=== PATIENT | male | born 1935 | race Two or more races ===

== ENCOUNTER 2017-10-29 09:58 | Inpatient (IN) | payer MEDICARE, OTHER ==
[2017-10-29] MEDS ORDERED: RINGERS SOLUTION,LACTATED 1,000 ML IV ONE (10:21)
[2017-10-29 10:36] LABS: ABSOLUTE EOSINOPHILS # (AUTO) 0.2 10^3/uL (0.0-0.6); ABSOLUTE LYMPHOCYTES (AUTO) 1.4 10^3/uL (0.5-4.7); ABSOLUTE MONOCYTES (AUTO) 0.5 10^3/uL (0.1-1.4); ABSOLUTE NEUT (AUTO) 6.4 10^3/uL (1.7-8.2); BASOPHILS % (AUTO) 0.4 % (0-2); EOSINOPHILS % (AUTO) 2.1 % (0-6); HEMATOCRIT 38.5 % (37.9-51.0); HEMOGLOBIN 13.9 g/dL (13.5-17.0); LYMPHOCYTES % (AUTO) 16.6 % (13-45); MEAN CORPUSCULAR HEMOGLOBIN 31.1 pg (27.0-33.4); MEAN CORPUSCULAR HGB CONC 36.1 g/dL (32.0-36.0); MEAN CORPUSCULAR VOLUME 86 fl (80-97); MONOCYTES % (AUTO) 5.9 % (3-13); PLATELET COUNT 258 10^3/uL (150-450); RED BLOOD COUNT 4.46 10^6/uL (4.35-5.55); RED CELL DISTRIBUTION WIDTH 14.7 % (11.5-14.0); TOTAL CELLS COUNTED % (AUTO) 100 %; WHITE BLOOD COUNT 8.6 10^3/uL (4.0-10.5)
--- NOTE | 2017-10-29 10:36 | ER Document Report ---
ED General - General Chief Complaint: Urinary Problem Stated Complaint: FAILURE TO THRIVE Time Seen by Provider: 10/29/17 10:04 Notes: Patient was brought in by EMS at the request of his daughter. She says that the patient has been deteriorating in health over the past few weeks. He has not been eating well or drinking sufficient fluids and has been feeling weak and dizzy. Last night, the daughter came home and found that the patient did had a very large liquid stool that was reddish brown in color. Has never done that before. His urine output has been down, but he did urinate this morning and EMS reported that there was blood in the toilet bowl where he urinated. Has not had any vomiting. Is hard of hearing and wears hearing aids which he does not have been at this time and is difficult to get a complete history or review of systems. Daughter says he has complained of some shortness of breath. Denies history of kidney disease or liver disease. Does have a history of atrial fibrillation, but not on any blood thinners except a baby aspirin daily. - Related Data Allergies/Adverse Reactions: No Known Allergies Allergy (Unverified 10/29/17 10:41) Past Medical History - Social History Smoking Status: Unknown if Ever Smoked Frequency of alcohol use: None - Since 1980s Family History: Reviewed & Not Pertinent - Past Medical History Cardiac Medical History: Reports: Hx Atrial Fibrillation Denies: Hx Coronary Artery Disease Neurological Medical History: Denies: Hx Cerebrovascular Accident Endocrine Medical History: Reports: Hx Diabetes Mellitus Type 1 GI Medical History: Denies: Hx Cirrhosis Psychiatric Medical History: Reports: Hx Depression Review of Systems - Review of Systems Notes: REVIEW OF SYSTEMS: Mostly from daughter. CONSTITUTIONAL : Denies fever. Generalized weakness, dizziness. EENT: Denies eye, ear, nose or mouth or throat pain or other symptoms. CARDIOVASCULAR: Denies chest pain. RESPIRATORY: Denies cough, chest congestion, but has had some occasional shortness of breath. GASTROINTESTINAL: Denies abdominal pain or nausea, vomiting, or diarrhea, but see HPI. GENITOURINARY: Denies difficulty or painful urinating, urinary frequency, but EMS did see blood in urine this morning. MUSCULOSKELETAL: Denies back or neck pain. Denies joint pain or swelling. SKIN: Denies rash or skin lesions. NEUROLOGICAL: Denies LOC or altered mental status. Denies headache. Denies sensory loss or motor deficits. ALL OTHER SYSTEMS REVIEWED AND NEGATIVE. -: Yes ROS unobtainable due to patient's medical condition - Patient is hard of hearing and does not answer questions fully. Physical Exam - Vital signs Vitals: Resp Pulse Ox 14 100 10/29/17 10:06 10/29/17 10:06 Interpretation: Normal - Notes Notes: PHYSICAL EXAMINATION: GENERAL: Weak-appearing, in no acute distress. Vital signs are all essentially normal. Patient answers questions poorly, some of that because he is deaf and not wearing his hearing aids. Some may be due to altered mental status. HEAD: Atraumatic, normocephalic. EYES: Pupils equal round and reactive to light, extraocular movements intact. ENT: oropharynx clear without exudates. Moist mucous membranes. NECK: Normal range of motion, supple. No carotid bruits heard. LUNGS: Breath sounds clear and equal bilaterally. HEART: Regular rate and rhythm without murmurs. ABDOMEN: Soft, nontender. No guarding or rebound. No masses. No bruits heard. Rectal exam performed. Hard stool in the vault. Yellow colored stool. Enlarged prostate. BACK: No tenderness throughout entire back. EXTREMITIES: Normal range of motion without pain. NEUROLOGICAL: Gait not tested. I do not think the patient can stand because of weakness. Normal speech at times, but at other times does not seem to hear or answer appropriately. Grossly moves all 4 extremities.. Awake, alert, but not oriented x3. PSYCH: Unable to assess. SKIN: Warm, dry, no rashes. Course - Re-evaluation Re-evalutation: 10/29/17 13:54 Discussed with hospitalist who will admit patient to telemetry. 10/29/17 14:35 Patient's calcium is elevated patient for that. Patient's CT scan shows a very large right renal cell cancer that is almost completely replaced the kidney on that side. Extensive involvement of lung and ribs with metastases from the primary of the kidney. - Vital Signs Vital signs: Temp Pulse Resp BP Pulse Ox 97.3 F 12 105/54 L 95 10/29/17 10:41 10/29/17 14:01 10/29/17 14:01 10/29/17 14:01 - Laboratory Result Diagrams: 10/29/17 09:35 10/29/17 09:35 Laboratory results interpreted by me: 10/29/17 10/29/1710/29/18 09:35 09:35 09:35 MCHC 36.1 H RDW 14.7 H APTT 42.9 H Carbon Dioxide 32 H Calcium 12.3 H* Direct Bilirubin 0.5 H AST 15 L ALT 15 L Creatine Kinase 31 L Albumin 3.4 L Lipase 21.9 L Urine Protein Urine Blood Urine Urobilinogen 10/29/17 10:30 MCHC RDW APTT Carbon Dioxide Calcium Direct Bilirubin AST ALT Creatine Kinase Albumin Lipase Urine Protein 30 H Urine Blood LARGE H Urine Urobilinogen 4.0 H - Diagnostic Test Radiology reviewed: Image reviewed, Reports reviewed Radiology results interpreted by me: 10/29/17 14:37 Chest x-ray shows multiple extensive cancerous lesions of both lung khanna. - EKG Interpretation by Ar EKG shows normal: Sinus rhythm Rate: Normal Rhythm: NSR - CT scan shows extensive renal cell cancer of the right kidney, replacing almost all kidney tissue. Discharge - Discharge Clinical Impression: Renal cell cancer, Hypercalcemia, Metastatic cancer to bone, Metastatic cancer to lung Condition: Serious Disposition: ADMITTED INPATIENT Admitting Provider: Hospitalist Unit Admitted: Telemetry
[2017-10-29 10:43] LABS: INTERNATIONAL RATION (INR) 1.06; PROTHROMBIN TIME 14.3 SEC (11.4-15.4)
[2017-10-29 10:44] LABS: PARTIAL THROMBOPLASTIN TIME 42.9 SEC (23.5-35.8)
[2017-10-29 10:49] LABS: APPEARANCE,URINE CLOUDY; BILIRUBIN,URINE NEGATIVE (NEGATIVE); COLOR,URINE DARK YELLOW; GLUCOSE, URINE NEGATIVE (NEGATIVE); KETONES,URINE NEGATIVE (NEGATIVE); LEUKOCYTE ESTERASE,URINE NEGATIVE (NEGATIVE); NITRITE,URINE NEGATIVE (NEGATIVE); PROTEIN,URINE 30 mg/dL (NEGATIVE); URINE SPECIFIC GRAVITY 1.013
[2017-10-29 10:50] LABS: ALANINE AMINOTRANSFERASE 15 U/L (21-72); ALBUMIN 3.4 g/dL (3.5-5.0); ALKALINE PHOSPHATASE 114 U/L (38-126); ANION GAP 12 (5-19); ASPARTATE AMINO TRANSFERASE 15 U/L (17-59); BILIRUBIN,DIRECT 0.5 mg/dL (0.0-0.4); BLOOD UREA NITROGEN 13 mg/dL (7-20); CARBON DIOXIDE 32 mmol/L (22-30); CHLORIDE 99 mmol/L (98-107); CREATINE KINASE 31 U/L (55-170); GLUCOSE 107 mg/dL (75-110); LIPASE 21.9 U/L (23-300); POTASSIUM 3.6 mmol/L (3.6-5.0); SODIUM 142.9 mmol/L (137-145); TOTAL PROTEIN 6.6 g/dL (6.3-8.2)
[2017-10-29 11:02] LABS: CALCIUM 12.3 mg/dL (8.4-10.2); CREATINE KINASE MB 1.02 ng/mL (<4.55); TROPONIN I < 0.012 ng/mL
--- NOTE | 2017-10-29 11:04 | RADIOLOGY REPORT (SQ) ---
EXAM DESCRIPTION: CHEST SINGLE VIEW COMPLETED DATE/TIME: 10/29/2017 10:51 am REASON FOR STUDY: Shortness of breath COMPARISON: None. EXAM PARAMETERS: NUMBER OF VIEWS: One view. TECHNIQUE: Single frontal radiographic view of the chest acquired. RADIATION DOSE: NA LIMITATIONS: None. FINDINGS: LUNGS AND PLEURA: Multiple pulmonary nodules are present about 2 cm in size worrisome for metastatic disease. No dense consolidation worrisome for pneumonia. No focal infiltrates. No pleural effusion. MEDIASTINUM AND HILAR STRUCTURES: No masses. Contour normal. HEART AND VASCULAR STRUCTURES: Borderline cardiomegaly BONES: Old healed bilateral rib fractures. HARDWARE: None in the chest. OTHER: No other significant finding. IMPRESSION: Multiple pulmonary nodules worrisome for metastatic disease TECHNICAL DOCUMENTATION: JOB ID: [id number] [employer]- All Rights Reserved Reading location - IP/workstation name: [email or web address]
--- NOTE | 2017-10-29 12:25 | RADIOLOGY REPORT (SQ) ---
EXAM DESCRIPTION: CT HEAD WITHOUT COMPLETED DATE/TIME: 10/29/2017 12:15 pm REASON FOR STUDY: Pulmonary metastases, altered mental status COMPARISON: None. TECHNIQUE: Axial images acquired through the brain without intravenous contrast. Images reviewed wi th bone, brain and subdural windows. Additional sagittal and coronal reconstructions were generated. Images stored on PACS. All CT scanners at this facility use dose modulation, iterative reconstruction, and/or weight based d osing when appropriate to reduce radiation dose to as low as reasonably achievable (ALARA). [facility]: Dose Right [facility]: CareDose [facility]: Dose Right [facility]: Teradose 4D [facility]: [employer] RADIATION DOSE: CT Rad equipment meets quality standard of care and radiation dose reduction techniq ues were employed. CTDIvol: 53.2 mGy. DLP: 1124 mGy-cm. mGy. LIMITATIONS: None. FINDINGS: VENTRICLES: Normal size and contour. CEREBRUM: No masses. No hemorrhage. No midline shift. No evidence for acute infarction. Normal gra y/white matter differentiation. No areas of low density in the white matter. CEREBELLUM: No masses. No hemorrhage. No alteration of density. No evidence for acute infarction. EXTRAAXIAL SPACES: No fluid collections. No masses. ORBITS AND GLOBE: No intra- or extraconal masses. Normal contour of globe without masses. CALVARIUM: No fracture. PARANASAL SINUSES: No fluid or mucosal thickening. SOFT TISSUES: No mass or hematoma. OTHER: No other significant finding. IMPRESSION: NORMAL BRAIN CT WITHOUT CONTRAST. EVIDENCE OF ACUTE STROKE: NO. COMMENT: Quality ID # [id number]: Final reports with documentation of one or more dose reduction techniques (e.g., Automated exposure control, adjustment of the mA and/or kV according to patient size, use of iterative reconstruction technique) TECHNICAL DOCUMENTATION: JOB ID: [id number] [employer]- All Rights Reserved Reading location - IP/workstation name: [email or web address]
--- NOTE | 2017-10-29 12:36 | RADIOLOGY REPORT (SQ) ---
EXAM DESCRIPTION: CT ABD/PELVIS WITH IV ONLY; CT CHEST WITH COMPLETED DATE/TIME: 10/29/2017 12:15 pm REASON FOR STUDY: Pulmonary metastases, unknown source COMPARISON: Radiographs from today. CONTRAST TYPE AND DOSE: contrast/concentration: Isovue 370.00 mg/ml; Total Contrast Delivered: 59.0 ml; Total Saline Delivered: 65.0 ml RENAL FUNCTION: Creatinine 0.71. TECHNIQUE: CT scan of the chest performed using helical scanning technique with dynamic intravenous contrast injection. Images reviewed with lung, soft tissue and bone windows. Reconstructed coronal a nd sagittal MPR images reviewed. All images stored on PACS. CT scan of the abdomen and pelvis performed with intravenous and with oral contrastusing helical scan vangie technique with dynamic intravenous contrast injection. Images reviewed with lung, soft tissue a nd bone windows. Reconstructed coronal and sagittal MPR images reviewed. Delayed images for evaluat ion of the urinary system also acquired and evaluated. All images stored on PACS. All CT scanners at this facility use dose modulation, iterative reconstruction, and/or weight based d osing when appropriate to reduce radiation dose to as low as reasonably achievable (ALARA). [facility]: Dose Right [facility]: CareDose [facility]: Dose Right [facility]: Teradose 4D [facility]: [employer] RADIATION DOSE: CT Rad equipment meets quality standard of care and radiation dose reduction techniq ues were employed. CTDIvol: 7.1 - 10.5 mGy. DLP: 1696 mGy-cm. . LIMITATIONS: None. FINDINGS: CHEST: LUNGS AND PLEURA: As seen radiographically, there are innumerable soft tissue masses scattered throug hout all lobes of the bilateral lungs consistent with metastases. Largest measure almost 3 cm in max imal dimension. No significant pleural effusion. HILAR AND MEDIASTINAL STRUCTURES: No identified masses or abnormal nodes. HEART AND VASCULAR STRUCTURES: No aneurysm or dissection. No central pulmonary emboli. No pericardi al effusion. HARDWARE: None. THYROID AND OTHER SOFT TISSUES: Thyroid partially obscured by dense contrast artifact regionally. No gross regional mass. No axillary adenopathy. Destructive mass along the right scapula has a large soft tissue component measuring at least 5 cm maximal dimension. BONES: As above. Osteopenia and spondylosis otherwise. OTHER: No other significant finding. ABDOMEN AND PELVIS: LIVER: Normal size. No masses. No dilated ducts. SPLEEN: Normal size. No focal lesions. PANCREAS: No masses. No significant calcifications. No adjacent inflammation or peripancreatic fluid collections. Pancreatic duct not dilated. GALLBLADDER: No identified stones by CT criteria. No inflammatory changes to suggest cholecystitis. ADRENAL GLANDS: No significant masses or asymmetry. RIGHT KIDNEY AND URETER: Extensive mass involves the majority of the right kidney. Maximal abnormal soft tissue component probably measures at least 10 cm transverse dimension. Associated irregular ca lcification with diminished renal parenchymal enhancement otherwise. LEFT KIDNEY AND URETER: No solid masses. No significant calcification. No hydronephrosis or hydrouret er. AORTA AND VESSELS: Normal caliber aorta without dissection or aneurysm. Major arterial branches are patent. No overt venous clot detected. Numerous collateral vessels are present along the renal hilu m. No gross IVC clot. RETROPERITONEUM: No overt adenopathy. BOWEL AND PERITONEAL CAVITY: Diverticulosis in the distal colon. No bowel obstruction evident. No g ross mass. APPENDIX: Normal. ABDOMINAL WALL: No masses. No hernias. PELVIS: Prostate enlarged. Guerrero catheter decompresses the bladder. No pelvic adenopathy or gross m ass. Several sclerotic bone foci in the pelvis. Atypical appearance for renal cell carcinoma, likel y related to bone islands. Slight sclerosis along the right ischium, again not typical appearance fo r renal cell metastasis. BONES: As above. OTHER: No other significant finding. IMPRESSION: 1. As seen radiographically, there is extensive bilateral pulmonary metastatic disease. 2. The primary lesion is presumably renal cell carcinoma. A large irregular mass largely replaces the right kidney. 3. Large destructive metastatic soft tissue mass in the posterior chest wall par tially involves the right scapula. Other bones are suspected to be intact. See description above. TECHNICAL DOCUMENTATION: JOB ID: [id number] Quality ID # [id number]: Final reports with documentation of one or more dose reduction techniques (e.g., Au tomated exposure control, adjustment of the mA and/or kV according to patient size, use of iterative reconstruction technique) 2010 [employer]- All Rights Reserved Reading location - IP/workstation name: [email or web address]
[2017-10-29] MEDS ORDERED: ONDANSETRON HCL INJ/PF 4 MG/2 ML SDV IV PRN (15:12)
[2017-10-29] MEDS ORDERED: ZOLEDRONIC ACID 5 MG/100 ML BOTTLE IV ONE (15:14)
[2017-10-29] MEDS ORDERED: GLUCAGON,HUMAN RECOMB 1 MG INJ IM PRN (15:16)
[2017-10-29] MEDS ORDERED: DEXTROSE 40% GEL 15 GM TUBE PO PRN ×2 (15:16)
[2017-10-29] MEDS ORDERED: INSULIN REG, HUMAN 100 UNIT/ML 3 ML VIAL (PYX) SUBCUT PRN (15:16)
[2017-10-29] MEDS ORDERED: DEXTROSE 50%-WATER 25 GM/50 ML DISP.SYRIN IV PRN ×2 (15:16)
--- NOTE | 2017-10-29 16:09 | PDOC H&P ---
History of Present Illness Admission Date/PCP: 10/29/17 15:16 Patient complains of: Weakness, loss of appetite, weight loss, hematuria vs rectal bleeding. History of Present Illness: SARA XIAO SR is a 82 year old male who is on a long visit with his daughter from his home in [place]. The history is supplied by the patient's daughter who is at bedside. The patient is sleeping and is difficult to arouse. The daughter states that the patient had a check up with his doctor in [place] in 02/2017, and was given a "clean bill of health". She states that he was doing very well and was planning to return to [place] this Spring when he lost his appetite in August. He then changed his plans and did not return to [place]. She states that other than a lack of appetite which has worsened since August and pain in his right knee, he has had no complaints. She had noticed some drastic weight loss when he worse jeans out to dinner a couple of weeks ago. She states that she had to "cinch" the belt at his waist due to weight loss. She states that over a week ago the patient fell and spent a couple of days in bed after that. However after a couple of days, he stated that he thought that the rest had improved his knee pain. However, over the last couple of days she had observed her father becoming weaker and weaker. She states that he got up to go to the bathroom yesterday evening. After he left the bathroom, she observed bloody material, she wasn't sure if it was fecal material or bloody urine, all over the bathroom. That is when she decided to bring him to the ED this morning. The patient's daughter is not certain of the patient's medical history. She states that he had a heart catheterization 3-5 years ago. She does not know if he received any stents at that time. She states that he has had atrial fibrillation in the past. He is a diabetic and had been very poorly controlled until she became involved in his physical care after the of her mother. He takes only metformin for his diabetes, but this was stopped on the advise of his doctor in [place] after they called him to discuss his lack of appetite in August. He has hypertension, but normal cholesterol. The daughter is not aware of any history of renal or hepatic problems. No GI history. He does have a diagnosis of anxiety for which he takes Zoloft. In the ED he has been found to have a calcium of 12, a large right renal mass, bilateral pulmonary metastasis, and a right scapular lesion. he is obtunded and is unable to participate in history or physical. Past Medical History Cardiac Medical History: Reports: Atrial Fibrillation, Coronary Artery Disease, Hyperlipidema, Other - Pt underwent LHC in [place] 3-5 years ago. The dtr does not know if stent placed Pulmonary Medical History: Reports: None EENT Medical History: Reports: None Neurological Medical History: Reports: None Endocrine Medical History: Reports: Diabetes Mellitus Type 2 Renal/ Medical History: Reports: None Malignancy Medical History: Reports: None GI Medical History: Denies: None, Cirrhosis, Gastroesophageal Reflux Disease, Peptic Ulcer Disease Musculoskeltal Medical History: Reports: Arthritis - osteoarthritis Psychiatric Medical History: Reports: Depression, General Anxiety Disorder Traumatic Medical History: Reports: Other - Fell over a week ago at home. Infectious Medical History: Reports: None Past Surgical History Past Surgical History: Reports: None Social History Smoking Status: Never Smoker Frequency of Alcohol Use: Occasional - Daily. Amount of Alcoholic Beverages Per Day: 6 pack of beer a day. Hx Recreational Drug Use: No Drugs: None Hx Prescription Drug Abuse: No Family History Parental Family History Reviewed: No - Unknown to dauther. Children Family History Reviewed: Unknown Sibling(s) Family History Reviewed.: Unknown Medication/Allergy Home Medications: No Home Medications 10/29/17 Allergies/Adverse Reactions: No Known Allergies Allergy (Unverified 10/29/17 10:41) Review of Systems ROS unobtainable: Due to mental status Physical Exam Vital Signs: Temp Pulse Resp BP Pulse Ox 97.3 F 17 123/64 95 10/29/17 10:41 10/29/17 15:01 10/29/17 15:01 10/29/17 15:01 General appearance: PRESENT: other - The patient is cachectic and acutely and chronically ill appearing. He is sleeping soundly. He stirs to tactile and verbal stimulation, but does not awaken or follow commands. Head exam: PRESENT: atraumatic, normocephalic Eye exam: PRESENT: other - The patient will not open eyes for exam, and squeezes them tightly shut when I try to open them. Mouth exam: PRESENT: other - The patient will not open mouth or extrude tongue for examination. Neck exam: ABSENT: carotid bruit, JVD, lymphadenopathy, meningismus, tenderness , thyromegaly Respiratory exam: PRESENT: other - No increased work of breathing. No wheezes, rales, or rhonchi. No tactile fremitus.. ABSENT: rales, rhonchi, wheezes Cardiovascular exam: PRESENT: RRR, other - No lateral PMI. No thrills.. ABSENT : diastolic murmur, rubs, systolic murmur Pulses: PRESENT: other - Diminished distal pulses bilaterally. Vascular exam: PRESENT: normal capillary refill GI/Abdominal exam: PRESENT: normal bowel sounds, soft, other - Scaffoid.. ABSENT: distended, guarding, mass, organolmegaly, rebound, tenderness Rectal exam: PRESENT: deferred, heme (-) stool Extremities exam: ABSENT: calf tenderness, clubbing, pedal edema Neurological exam: PRESENT: other - Unable to perform neurological exam as the patient is unable to participate in examination. Psychiatric exam: PRESENT: homicidal ideation, other - I am unable to evaluate the patient's psychiatric status due to his inability to cooperate in examinatino. Skin exam: PRESENT: dry, intact, warm. ABSENT: cyanosis, rash Results Impressions: Chest X-Ray 10/29/17 10:18 IMPRESSION: Multiple pulmonary nodules worrisome for metastatic disease Abdomen/Pelvis CT 10/29/17 11:13 IMPRESSION: 1. As seen radiographically, there is extensive bilateral pulmonary metastatic disease. 2. The primary lesion is presumably renal cell carcinoma. A large irregular mass largely replaces the right kidney. 3. Large destructive metastatic soft tissue mass in the posterior chest wall partially involves the right scapula. Other bones are suspected to be intact. See description above. Chest CT 10/29/17 11:13 IMPRESSION: 1. As seen radiographically, there is extensive bilateral pulmonary metastatic disease. 2. The primary lesion is presumably renal cell carcinoma. A large irregular mass largely replaces the right kidney. 3. Large destructive metastatic soft tissue mass in the posterior chest wall partially involves the right scapula. Other bones are suspected to be intact. See description above. Head CT 10/29/17 11:14 IMPRESSION: NORMAL BRAIN CT WITHOUT CONTRAST. EVIDENCE OF ACUTE STROKE: NO. Assessment & Plan - Diagnosis (1) Toxic metabolic encephalopathy Is this a current diagnosis for this admission?: Yes Plan: Aggressive IV NS and zolendronic acid. Likely due to hypercalcemia. Monitor electrolytes carefully. (2) Hypercalcemia Is this a current diagnosis for this admission?: Yes Plan: Secondary to malignancy. IV NS and zolendronic acid. Monitor electrolytes carefully. 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 I have discussed the patient with Dr. Hastings from IR. She will perform an ultrasound guided biopsy of the lesion on the right scapula tomorrow. 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 Plan is for biopsy of scapular lesion by IR tomorrow. Hematology/oncology has been consulted. (5) Renal cell cancer Qualifiers: Laterality: right Qualified Code(s): C64.1 - Malignant neoplasm of right kidney, except renal pelvis Is this a current diagnosis for this admission?: Yes Plan: Hematology/oncology consulted. Plan is for biopsy of lesion on right scapula tomorrow by IR. - Time Time Spent: Greater than 70 Minutes Medications reviewed and adjusted accordingly: Yes Disposition: Unknown at this time. - Inpatient Certification I certify that my determination is in accordance with my understanding of Medicare's requirements for reasonable and necessary INPATIENT services [42 CFR 412.3e].: Yes Medical Necessity: Need Close Monitoring Due to Risk of Patient Decompensation, Need For IV Fluids, Need For Continuous Telemetry Monitoring, Risk of Complication if Not Cared For in Hospital, Risk of Diagnosis Which Will Require Inpatient Eval/Care/Monitoring
[2017-10-29] MEDS ORDERED: ZOLEDRONIC ACID 5 MG/100 ML RTU IV ONE (16:30)
[2017-10-29] MEDS: NORMAL SALINE 1000 ML 1,000 ML IV PRN ×3 (16:49→22:06)
[2017-10-29 17:01] LABS: INTERNATIONAL RATION (INR) 1.04; PROTHROMBIN TIME 14.1 SEC (11.4-15.4)
--- NOTE | 2017-10-29 21:52 | EKG REPORT ---
SEVERITY:- ABNORMAL ECG - SINUS RHYTHM FIRST DEGREE AV BLOCK : Confirmed by: Serenity Ni MD 29-Oct-2017 21:51:04
[2017-10-29] MEDS ORDERED: SERTRALINE HCL 50 MG TABLET PO ONE (22:00)
[2017-10-30 06:05] LABS: ABSOLUTE EOSINOPHILS # (AUTO) 0.1 10^3/uL (0.0-0.6); ABSOLUTE LYMPHOCYTES (AUTO) 0.7 10^3/uL (0.5-4.7); ABSOLUTE MONOCYTES (AUTO) 0.4 10^3/uL (0.1-1.4); ALANINE AMINOTRANSFERASE 17 U/L (21-72); ALBUMIN 2.6 g/dL (3.5-5.0); ALKALINE PHOSPHATASE 79 U/L (38-126); ANION GAP 10 (5-19); ASPARTATE AMINO TRANSFERASE 12 U/L (17-59); BASOPHILS % (AUTO) 0.6 % (0-2); BILIRUBIN,DIRECT 0.4 mg/dL (0.0-0.4); BILIRUBIN,TOTAL 0.7 mg/dL (0.2-1.3); BLOOD UREA NITROGEN 10 mg/dL (7-20); CALCIUM 10.5 mg/dL (8.4-10.2); CARBON DIOXIDE 28 mmol/L (22-30); CHLORIDE 104 mmol/L (98-107); EOSINOPHILS % (AUTO) 1.7 % (0-6); GLUCOSE 87 mg/dL (75-110); HEMATOCRIT 29.6 % (37.9-51.0); LYMPHOCYTES % (AUTO) 11.8 % (13-45); MEAN CORPUSCULAR HEMOGLOBIN 31.4 pg (27.0-33.4); MEAN CORPUSCULAR HGB CONC 36.4 g/dL (32.0-36.0); MEAN CORPUSCULAR VOLUME 86 fl (80-97); MONOCYTES % (AUTO) 6.4 % (3-13); PHOSPHORUS 2.3 mg/dL (2.5-4.5); PLATELET COUNT 192 10^3/uL (150-450); POTASSIUM 3.2 mmol/L (3.6-5.0); RED BLOOD COUNT 3.44 10^6/uL (4.35-5.55); RED CELL DISTRIBUTION WIDTH 14.8 % (11.5-14.0); SEGMENTED NEUTROPHILS % (AUTO) 79.5 % (42-78); SODIUM 141.6 mmol/L (137-145); TOTAL CELLS COUNTED % (AUTO) 100 %; WHITE BLOOD COUNT 6.3 10^3/uL (4.0-10.5)
[2017-10-30 06:10] LABS: HEMOGLOBIN 10.8 g/dL (13.5-17.0)
--- NOTE | 2017-10-30 08:10 | PDOC CONSULTATION ---
Consultation Consult Date: 10/30/17 Consult reason:: Hematology/Oncology consultation was requested for patient with hypercalcemia and CT with evidence of renal mass. History of Present Illness Admission Date/PCP: 10/29/17 15:16 History of Present Illness: SARA XIAO SR is a 82 year old male with a 4 week history of poor appetite, increased arthralgias and weight loss. 2 days ago, patient was found to have confusion and blood in his stool. He presented to the ED and was found to have hypercalcemia and a mass in his kidney. Past Medical History Cardiac Medical History: Reports: Atrial Fibrillation, Coronary Artery Disease, Hyperlipidema, Other - Pt underwent LHC in [place] 3-5 years ago. The dtr does not know if stent placed Pulmonary Medical History: Reports: None EENT Medical History: Reports: None Neurological Medical History: Reports: None Endocrine Medical History: Reports: Diabetes Mellitus Type 1, Diabetes Mellitus Type 2 Renal/ Medical History: Reports: None Malignancy Medical History: Reports: None GI Medical History: Denies: None, Cirrhosis, Gastroesophageal Reflux Disease, Peptic Ulcer Disease Musculoskeltal Medical History: Reports: Arthritis - osteoarthritis Psychiatric Medical History: Reports: Depression - on Zoloft, General Anxiety Disorder Traumatic Medical History: Reports: Other - Fell over a week ago at home. Infectious Medical History: Reports: None Past Surgical History Past Surgical History: Reports: None Social History Smoking Status: Never Smoker Frequency of Alcohol Use: Occasional Hx Recreational Drug Use: No Drugs: None Hx Prescription Drug Abuse: No - Advance Directive Resuscitation Status: Full Code Family History Parental Family History Reviewed: Yes - mother of MVA. Father of old age. Children Family History Reviewed: Yes Sibling(s) Family History Reviewed.: Yes Medication/Allergy Home Medications: Sertraline HCl 200 mg PO DAILY 10/29/17 Allergies/Adverse Reactions: No Known Allergies Allergy (Unverified 10/29/17 10:41) Review of Systems ROS unobtainable: Due to mental status Physical Exam Vital Signs: Temp Pulse Resp BP Pulse Ox 97.5 F 71 17 107/61 96 10/30/17 04:05 10/30/17 04:05 10/30/17 04:05 10/30/17 04:05 10/30/17 04:05 Intake & Output 10/29/17 10/30/17 10/31/17 06:59 06:59 06:59 Output Total 1250 Balance -1250 Weight 56.7 kg General appearance: PRESENT: no acute distress, well-developed, well-nourished Head exam: PRESENT: normocephalic Eye exam: PRESENT: other - Unable to asses as patient is uncooperative Ear exam: PRESENT: normal external ear exam Mouth exam: PRESENT: neck supple Neck exam: ABSENT: lymphadenopathy, tenderness Respiratory exam: PRESENT: crackles, unlabored Cardiovascular exam: PRESENT: RRR. ABSENT: systolic murmur Pulses: PRESENT: normal dorsalis pedis pul GI/Abdominal exam: PRESENT: normal bowel sounds, soft. ABSENT: mass, tenderness Extremities exam: ABSENT: joint swelling, pedal edema Musculoskeletal exam: PRESENT: normal inspection Neurological exam: PRESENT: awake. ABSENT: oriented to person, oriented to place, oriented to time, oriented to situation Psychiatric exam: PRESENT: other - Uncooperative with my exam today. Skin exam: PRESENT: normal color Results Laboratory Results: 10/30/17 04:39 10/30/17 04:39 10/29/17 10/30/17 10/30/17 16:19 04:39 04:39 WBC 6.3 RBC 3.44 L Hgb 10.8 L D Hct 29.6 L MCV 86 MCH 31.4 MCHC 36.4 H RDW 14.8 H Plt Count 192 Seg Neutrophils % 79.5 H Lymphocytes % 11.8 L Monocytes % 6.4 Eosinophils % 1.7 Basophils % 0.6 Absolute Neutrophils 5.0 Absolute Lymphocytes 0.7 Absolute Monocytes 0.4 Absolute Eosinophils 0.1 Absolute Basophils 0.0 Sodium 141.6 Potassium 3.2 L Chloride 104 Carbon Dioxide 28 Anion Gap 10 BUN 10 Creatinine 0.53 Est GFR ( Amer) > 60 Est GFR (Non-Af Amer) > 60 Glucose 87 Calcium 10.5 H Ionized Calcium Iva 1.54 H Phosphorus 2.3 L Magnesium 1.5 L Total Bilirubin 0.7 AST 12 L ALT 17 L Alkaline Phosphatase 79 Total Protein 5.0 L Albumin 2.6 L Impressions: Chest X-Ray 10/29/17 10:18 IMPRESSION: Multiple pulmonary nodules worrisome for metastatic disease Abdomen/Pelvis CT 10/29/17 11:13 IMPRESSION: 1. As seen radiographically, there is extensive bilateral pulmonary metastatic disease. 2. The primary lesion is presumably renal cell carcinoma. A large irregular mass largely replaces the right kidney. 3. Large destructive metastatic soft tissue mass in the posterior chest wall partially involves the right scapula. Other bones are suspected to be intact. See description above. Chest CT 10/29/17 11:13 IMPRESSION: 1. As seen radiographically, there is extensive bilateral pulmonary metastatic disease. 2. The primary lesion is presumably renal cell carcinoma. A large irregular mass largely replaces the right kidney. 3. Large destructive metastatic soft tissue mass in the posterior chest wall partially involves the right scapula. Other bones are suspected to be intact. See description above. Head CT 10/29/17 11:14 IMPRESSION: NORMAL BRAIN CT WITHOUT CONTRAST. EVIDENCE OF ACUTE STROKE: NO. Assessment & Plan - Diagnosis (1) Hypercalcemia Is this a current diagnosis for this admission?: Yes Plan: Improved today. He received zometa. Agree with continued IV fluids. Appears to be secondary to malignancy. (2) Renal cell cancer Qualifiers: Laterality: right Qualified Code(s): C64.1 - Malignant neoplasm of right kidney, except renal pelvis Is this a current diagnosis for this admission?: Yes Plan: Clinical evidence of kidney cancer with mets to posterior chest wall and lungs. Agree with plans for biopsy, per interventional radiology. - Plan Summary Plan Summary: I spent 25 minutes on the phone with patient's daughter, Flores this morning. All questions were answered to the best of my ability. Will await pathology report before making any other recommendations.
[2017-10-30] MEDS: SERTRALINE HCL 50 MG TABLET PO SCH (08:57)
[2017-10-30] MEDS ORDERED: POTASSIUM CHLORIDE 10 MEQ CAPSULE.ER PO ONE (09:30)
--- NOTE | 2017-10-30 14:03 | RADIOLOGY REPORT (SQ) ---
EXAM DESCRIPTION: U/S BIOPSY MUSCLE COMPLETED DATE/TIME: 10/30/2017 1:33 pm REASON FOR STUDY: Renal mass with mets to rt scapula and lungs bl. COMPARISON: None. TECHNIQUE: The procedure was discussed with the patient's daughter who gave consent. The patient was scanned and the area of interest in the right scapular tip was localized. This corre lates with the area of concern on prior imaging studies. This area was targeted for ultrasound-guided core biopsy. After sterile skin prep and 3 mL local lidocaine 1% for skin and deep tissue anesthesia, a 14 gauge c oaxial core biopsy needle was used to obtain two cores of tissue from the lesion. Under ultrasound g uidance, a Gel-Foam" starch marker" clip was placed in the areas sampled. There were no immediate po st-procedure complications. Pathology is pending. LIMITATIONS: None. FINDINGS: Ultrasound guided biopsy of the right scapular tip mass under ultrasound guidance, biopsy tract embolized with Gel-Foam/starch marker. IMPRESSION: ULTRASOUND-GUIDED CORE BIOPSY OF THE SOFT TISSUE MASS AT THE INFERIOR TIP RIGHT SCAPULA, MARKER PLACED WITHIN THE MASS. NO IMMEDIATE POSTPROCEDURE COMPLICATIONS. PATHOLOGY IS PENDING. COMMENT: Patient medication list reviewed: Yes- Quality ID# [id number]:Eligible professional attests to doc umenting in the medical record they obtained, updated, or reviewed the patient's current medications. TECHNICAL DOCUMENTATION: JOB ID: [id number] [employer]- All Rights Reserved Reading location - IP/workstation name: [email or web address]
[2017-10-30] MEDS ORDERED: ONDANSETRON HCL INJ/PF 4 MG/2 ML SDV IV PRN (14:30)
--- NOTE | 2017-10-30 17:51 | PDOC PROGRESS REPORT ---
Subjective Progress Note for:: 10/30/17 Subjective:: The patient was awake and alert this morning. He was unaware of the CT findings. I explained them to him and explained to him the plan. He had no questions. Reason For Visit: HYPERCALCEMIA RENAL CELL CARCINOMA WITH Physical Exam Vital Signs: Temp Pulse Resp BP Pulse Ox 98.2 F 79 20 118/64 96 10/30/17 12:00 10/30/17 14:00 10/30/17 12:00 10/30/17 12:00 10/30/17 04:05 Intake & Output 10/29/17 10/30/17 10/31/17 06:59 06:59 06:59 Intake Total 1925 0 Output Total 1250 51 Balance 675 -51 Weight 56.7 kg General appearance: PRESENT: no acute distress, cooperative, thin, other - The patient appears acutely ill. Eye exam: PRESENT: scleral icterus Respiratory exam: PRESENT: other - No increaed work of breathing. No tactile fremitus.. ABSENT: rales, rhonchi, wheezes Cardiovascular exam: PRESENT: RRR. ABSENT: diastolic murmur, rubs, systolic murmur Pulses: PRESENT: other - Diminished distal pulses. GI/Abdominal exam: PRESENT: normal bowel sounds, soft, other - Scaffoid.. ABSENT: distended, guarding, mass, organolmegaly, rebound, tenderness Rectal exam: PRESENT: deferred Extremities exam: PRESENT: full ROM. ABSENT: calf tenderness, clubbing, pedal edema Neurological exam: PRESENT: alert, awake, oriented to person, oriented to place , oriented to time, oriented to situation, CN II-XII grossly intact. ABSENT: motor sensory deficit Psychiatric exam: PRESENT: appropriate affect, depressed. ABSENT: homicidal ideation, suicidal ideation Skin exam: PRESENT: dry, intact, warm. ABSENT: cyanosis, rash Results Laboratory Results: 10/30/17 04:39 10/30/17 04:39 10/30/17 10/30/17 04:39 04:39 WBC 6.3 RBC 3.44 L Hgb 10.8 L D Hct 29.6 L MCV 86 MCH 31.4 MCHC 36.4 H RDW 14.8 H Plt Count 192 Seg Neutrophils % 79.5 H Lymphocytes % 11.8 L Monocytes % 6.4 Eosinophils % 1.7 Basophils % 0.6 Absolute Neutrophils 5.0 Absolute Lymphocytes 0.7 Absolute Monocytes 0.4 Absolute Eosinophils 0.1 Absolute Basophils 0.0 Sodium 141.6 Potassium 3.2 L Chloride 104 Carbon Dioxide 28 Anion Gap 10 BUN 10 Creatinine 0.53 Est GFR ( Amer) > 60 Est GFR (Non-Af Amer) > 60 Glucose 87 Calcium 10.5 H Phosphorus 2.3 L Magnesium 1.5 L Total Bilirubin 0.7 AST 12 L ALT 17 L Alkaline Phosphatase 79 Total Protein 5.0 L Albumin 2.6 L Impressions: Chest X-Ray 10/29/17 10:18 IMPRESSION: Multiple pulmonary nodules worrisome for metastatic disease Abdomen/Pelvis CT 10/29/17 11:13 IMPRESSION: 1. As seen radiographically, there is extensive bilateral pulmonary metastatic disease. 2. The primary lesion is presumably renal cell carcinoma. A large irregular mass largely replaces the right kidney. 3. Large destructive metastatic soft tissue mass in the posterior chest wall partially involves the right scapula. Other bones are suspected to be intact. See description above. Chest CT 10/29/17 11:13 IMPRESSION: 1. As seen radiographically, there is extensive bilateral pulmonary metastatic disease. 2. The primary lesion is presumably renal cell carcinoma. A large irregular mass largely replaces the right kidney. 3. Large destructive metastatic soft tissue mass in the posterior chest wall partially involves the right scapula. Other bones are suspected to be intact. See description above. Head CT 10/29/17 11:14 IMPRESSION: NORMAL BRAIN CT WITHOUT CONTRAST. EVIDENCE OF ACUTE STROKE: NO. Biopsy Ultrasound 10/30/17 00:00 IMPRESSION: ULTRASOUND-GUIDED CORE BIOPSY OF THE SOFT TISSUE MASS AT THE INFERIOR TIP RIGHT SCAPULA, MARKER PLACED WITHIN THE MASS. NO IMMEDIATE POSTPROCEDURE COMPLICATIONS. PATHOLOGY IS PENDING. Assessment & Plan - Diagnosis (1) Toxic metabolic encephalopathy Is this a current diagnosis for this admission?: Yes Plan: Resolved with improved calcium levels. Monitor and continue IV fluids. (2) Hypercalcemia Is this a current diagnosis for this admission?: Yes Plan: Secondary to malignancy. Calcium levels have responded to IV NS and zolendronic acid. Ca++ is 10.5 this am. Continue to monitor electrolytes carefully. 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 I appreciate oncology's assistance. The patient underwent biopsy of the scapular lesion with ultrasound guidance with Dr. Hastings. I appreciate her assistance. 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 I appreciate oncology's assistance. The patient underwent biopsy of the scapular lesion with ultrasound guidance with Dr. Hastings. I appreciate her assistance. (5) Renal cell cancer Qualifiers: Laterality: right Qualified Code(s): C64.1 - Malignant neoplasm of right kidney, except renal pelvis Is this a current diagnosis for this admission?: Yes Plan: I appreciate oncology's assistance. The patient underwent biopsy of the scapular lesion with ultrasound guidance with Dr. Hastings. I appreciate her assistance. - Time Time Spent with patient: 25-34 minutes Medications reviewed and adjusted accordingly: Yes Anticipated discharge: Home
[2017-10-31 05:03] LABS: ABSOLUTE EOSINOPHILS # (AUTO) 0.1 10^3/uL (0.0-0.6); ABSOLUTE LYMPHOCYTES (AUTO) 0.6 10^3/uL (0.5-4.7); ABSOLUTE MONOCYTES (AUTO) 0.5 10^3/uL (0.1-1.4); ABSOLUTE NEUT (AUTO) 6.5 10^3/uL (1.7-8.2); BASOPHILS % (AUTO) 0.4 % (0-2); EOSINOPHILS % (AUTO) 1.1 % (0-6); HEMATOCRIT 29.4 % (37.9-51.0); HEMOGLOBIN 10.8 g/dL (13.5-17.0); LYMPHOCYTES % (AUTO) 7.3 % (13-45); MEAN CORPUSCULAR HEMOGLOBIN 31.7 pg (27.0-33.4); MEAN CORPUSCULAR HGB CONC 36.6 g/dL (32.0-36.0); MEAN CORPUSCULAR VOLUME 87 fl (80-97); MONOCYTES % (AUTO) 6.2 % (3-13); PLATELET COUNT 197 10^3/uL (150-450); RED CELL DISTRIBUTION WIDTH 14.4 % (11.5-14.0); TOTAL CELLS COUNTED % (AUTO) 100 %; WHITE BLOOD COUNT 7.7 10^3/uL (4.0-10.5)
[2017-10-31 05:15] LABS: ANION GAP 8 (5-19); BLOOD UREA NITROGEN 7 mg/dL (7-20); CALCIUM 8.8 mg/dL (8.4-10.2); CARBON DIOXIDE 26 mmol/L (22-30); CHLORIDE 108 mmol/L (98-107); GLUCOSE 87 mg/dL (75-110)
[2017-10-31 05:18] LABS: POTASSIUM 3.1 mmol/L (3.6-5.0)
--- NOTE | 2017-10-31 08:29 | PDOC PROGRESS REPORT ---
Subjective Progress Note for:: 10/31/17 Subjective:: Patient seen this a.m., he still seems confused, this morning when I went into the room to talk to him, and I asked him how he is doing, he said "I am fine" and then showed his eyes tightly and put his head to the side. He would not speak to me after that. I will call his daughters to discuss this case. Awaiting biopsy results. Reason For Visit: HYPERCALCEMIA RENAL CELL CARCINOMA WITH Physical Exam Vital Signs: Temp Pulse Resp BP Pulse Ox 97.6 F 83 15 112/53 L 99 10/31/17 07:08 10/31/17 07:08 10/31/17 07:08 10/31/17 07:08 10/31/17 07:08 Intake & Output 10/30/17 10/31/17 11/01/17 06:59 06:59 06:59 Intake Total 1925 2100 Output Total 1250 1651 Balance 675 449 Weight 56.7 kg 63 kg General appearance: PRESENT: no acute distress Head exam: PRESENT: atraumatic Mouth exam: PRESENT: dry mucosa Respiratory exam: PRESENT: clear to auscultation coni. ABSENT: rales, rhonchi, wheezes Cardiovascular exam: PRESENT: RRR. ABSENT: diastolic murmur, rubs, systolic murmur GI/Abdominal exam: PRESENT: normal bowel sounds, soft. ABSENT: distended, guarding, mass, organolmegaly, rebound, tenderness Rectal exam: PRESENT: deferred Neurological exam: PRESENT: altered, other Results Laboratory Results: 10/31/17 04:39 10/31/17 04:39 10/31/17 10/31/17 10/31/17 04:39 04:39 04:39 WBC 7.7 RBC 3.40 L Hgb 10.8 L Hct 29.4 L MCV 87 MCH 31.7 MCHC 36.6 H RDW 14.4 H Plt Count 197 Seg Neutrophils % 85.0 H Lymphocytes % 7.3 L Monocytes % 6.2 Eosinophils % 1.1 Basophils % 0.4 Absolute Neutrophils 6.5 Absolute Lymphocytes 0.6 Absolute Monocytes 0.5 Absolute Eosinophils 0.1 Absolute Basophils 0.0 Sodium 142.0 Potassium 3.1 L Chloride 108 H Carbon Dioxide 26 Anion Gap 8 BUN 7 Creatinine 0.53 Est GFR ( Amer) > 60 Est GFR (Non-Af Amer) > 60 Glucose 87 Calcium 8.8 Ionized Calcium Iva 1.22 Impressions: Chest X-Ray 10/29/17 10:18 IMPRESSION: Multiple pulmonary nodules worrisome for metastatic disease Abdomen/Pelvis CT 10/29/17 11:13 IMPRESSION: 1. As seen radiographically, there is extensive bilateral pulmonary metastatic disease. 2. The primary lesion is presumably renal cell carcinoma. A large irregular mass largely replaces the right kidney. 3. Large destructive metastatic soft tissue mass in the posterior chest wall partially involves the right scapula. Other bones are suspected to be intact. See description above. Chest CT 10/29/17 11:13 IMPRESSION: 1. As seen radiographically, there is extensive bilateral pulmonary metastatic disease. 2. The primary lesion is presumably renal cell carcinoma. A large irregular mass largely replaces the right kidney. 3. Large destructive metastatic soft tissue mass in the posterior chest wall partially involves the right scapula. Other bones are suspected to be intact. See description above. Head CT 10/29/17 11:14 IMPRESSION: NORMAL BRAIN CT WITHOUT CONTRAST. EVIDENCE OF ACUTE STROKE: NO. Biopsy Ultrasound 10/30/17 00:00 IMPRESSION: ULTRASOUND-GUIDED CORE BIOPSY OF THE SOFT TISSUE MASS AT THE INFERIOR TIP RIGHT SCAPULA, MARKER PLACED WITHIN THE MASS. NO IMMEDIATE POSTPROCEDURE COMPLICATIONS. PATHOLOGY IS PENDING. Assessment & Plan - Diagnosis (1) Renal cell cancer Qualifiers: Laterality: right Qualified Code(s): C64.1 - Malignant neoplasm of right kidney, except renal pelvis Is this a current diagnosis for this admission?: Yes Plan: Likely stage IV renal cell carcinoma, awaiting final biopsy results. Will follow.
[2017-10-31] MEDS ORDERED: POTASSIUM CHLORIDE 10 MEQ CAPSULE.ER PO ONE (12:00)
[2017-10-31] MEDS: SERTRALINE HCL 50 MG TABLET PO SCH (13:02)
[2017-10-31] MEDS: POTASSIUM CHLORIDE 10 MEQ CAPSULE.ER PO SCH ×2 (15:41→19:16)
--- NOTE | 2017-10-31 18:31 | PDOC PROGRESS REPORT ---
Subjective Progress Note for:: 10/31/17 Subjective:: The patient was awake and alert this morning. His son (in-law?) was at bedside. No new complaints. The patient has very poor PO intake of food and fluids. Reason For Visit: HYPERCALCEMIA RENAL CELL CARCINOMA WITH Physical Exam Vital Signs: Temp Pulse Resp BP Pulse Ox 98.8 F 85 21 H 100/57 L 97 10/31/17 12:23 10/31/17 12:23 10/31/17 12:23 10/31/17 12:23 10/31/17 12:23 Intake & Output 10/30/17 10/31/17 11/01/17 06:59 06:59 06:59 Intake Total 1925 2100 300 Output Total 1250 1651 690 Balance 675 449 -390 Weight 56.7 kg 63 kg General appearance: PRESENT: no acute distress, cooperative Respiratory exam: PRESENT: other - No increased work of breathing. No wheezes, rales, or rhonchi. No tactile fremitus. Cardiovascular exam: PRESENT: RRR. ABSENT: gallop, rubs, systolic murmur GI/Abdominal exam: PRESENT: normal bowel sounds, soft, other - Scaffoid. ABSENT : firm, mass, organolmegaly Extremities exam: PRESENT: full ROM. ABSENT: clubbing, tenderness Musculoskeletal exam: PRESENT: normal inspection. ABSENT: deformity, tenderness Neurological exam: PRESENT: altered, awake, oriented to person, oriented to place, oriented to time, CN II-XII grossly intact. ABSENT: motor sensory deficit Psychiatric exam: PRESENT: appropriate affect, depressed Skin exam: PRESENT: dry, intact, warm Results Laboratory Results: 10/31/17 04:39 10/31/17 04:39 10/31/17 10/31/17 10/31/17 04:39 04:39 04:39 WBC 7.7 RBC 3.40 L Hgb 10.8 L Hct 29.4 L MCV 87 MCH 31.7 MCHC 36.6 H RDW 14.4 H Plt Count 197 Seg Neutrophils % 85.0 H Lymphocytes % 7.3 L Monocytes % 6.2 Eosinophils % 1.1 Basophils % 0.4 Absolute Neutrophils 6.5 Absolute Lymphocytes 0.6 Absolute Monocytes 0.5 Absolute Eosinophils 0.1 Absolute Basophils 0.0 Sodium 142.0 Potassium 3.1 L Chloride 108 H Carbon Dioxide 26 Anion Gap 8 BUN 7 Creatinine 0.53 Est GFR ( Amer) > 60 Est GFR (Non-Af Amer) > 60 Glucose 87 Calcium 8.8 Ionized Calcium Iva 1.22 Impressions: Chest X-Ray 10/29/17 10:18 IMPRESSION: Multiple pulmonary nodules worrisome for metastatic disease Abdomen/Pelvis CT 10/29/17 11:13 IMPRESSION: 1. As seen radiographically, there is extensive bilateral pulmonary metastatic disease. 2. The primary lesion is presumably renal cell carcinoma. A large irregular mass largely replaces the right kidney. 3. Large destructive metastatic soft tissue mass in the posterior chest wall partially involves the right scapula. Other bones are suspected to be intact. See description above. Chest CT 10/29/17 11:13 IMPRESSION: 1. As seen radiographically, there is extensive bilateral pulmonary metastatic disease. 2. The primary lesion is presumably renal cell carcinoma. A large irregular mass largely replaces the right kidney. 3. Large destructive metastatic soft tissue mass in the posterior chest wall partially involves the right scapula. Other bones are suspected to be intact. See description above. Head CT 10/29/17 11:14 IMPRESSION: NORMAL BRAIN CT WITHOUT CONTRAST. EVIDENCE OF ACUTE STROKE: NO. Biopsy Ultrasound 10/30/17 00:00 IMPRESSION: ULTRASOUND-GUIDED CORE BIOPSY OF THE SOFT TISSUE MASS AT THE INFERIOR TIP RIGHT SCAPULA, MARKER PLACED WITHIN THE MASS. NO IMMEDIATE POSTPROCEDURE COMPLICATIONS. PATHOLOGY IS PENDING. Assessment & Plan - Diagnosis (1) Toxic metabolic encephalopathy Is this a current diagnosis for this admission?: Yes Plan: Improved with improved calcium levels, but still confused and not with it per son. Monitor and continue IV fluids. (2) Hypercalcemia Is this a current diagnosis for this admission?: Yes Plan: Secondary to malignancy. Calcium levels have responded to IV NS and zolendronic acid. Ca++ is 8.5 this am. Continue to monitor electrolytes carefully. 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 I appreciate oncology's assistance. The patient underwent biopsy of the scapular lesion with ultrasound guidance with Dr. Hastings. I appreciate her assistance. Awaiting pathology. 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 I appreciate oncology's assistance. The patient underwent biopsy of the scapular lesion with ultrasound guidance with Dr. Hastings. I appreciate her assistance. Awaiting pathology. (5) Renal cell cancer Qualifiers: Laterality: right Qualified Code(s): C64.1 - Malignant neoplasm of right kidney, except renal pelvis Is this a current diagnosis for this admission?: Yes Plan: I appreciate oncology's assistance. The patient underwent biopsy of the scapular lesion with ultrasound guidance with Dr. Hastings. I appreciate her assistance. Awaiting pathology. - Time Time Spent with patient: 35 or more minutes - I discussed the patient with the son at length. All Medications reviewed and adjusted accordingly: Yes Anticipated discharge: Hospice
[2017-11-01 06:23] LABS: ABSOLUTE BASOPHILS # (AUTO) 0.1 10^3/uL (0.0-0.2); ABSOLUTE EOSINOPHILS # (AUTO) 0.1 10^3/uL (0.0-0.6); ABSOLUTE LYMPHOCYTES (AUTO) 0.7 10^3/uL (0.5-4.7); ABSOLUTE MONOCYTES (AUTO) 0.4 10^3/uL (0.1-1.4); ABSOLUTE NEUT (AUTO) 5.2 10^3/uL (1.7-8.2); BASOPHILS % (AUTO) 0.9 % (0-2); EOSINOPHILS % (AUTO) 1.9 % (0-6); HEMATOCRIT 29.7 % (37.9-51.0); HEMOGLOBIN 10.8 g/dL (13.5-17.0); LYMPHOCYTES % (AUTO) 10.6 % (13-45); MEAN CORPUSCULAR HEMOGLOBIN 31.6 pg (27.0-33.4); MEAN CORPUSCULAR HGB CONC 36.3 g/dL (32.0-36.0); MEAN CORPUSCULAR VOLUME 87 fl (80-97); MONOCYTES % (AUTO) 6.3 % (3-13); PLATELET COUNT 195 10^3/uL (150-450); RED BLOOD COUNT 3.42 10^6/uL (4.35-5.55); RED CELL DISTRIBUTION WIDTH 14.7 % (11.5-14.0); SEGMENTED NEUTROPHILS % (AUTO) 80.3 % (42-78); TOTAL CELLS COUNTED % (AUTO) 100 %; WHITE BLOOD COUNT 6.5 10^3/uL (4.0-10.5)
[2017-11-01 06:43] LABS: ALANINE AMINOTRANSFERASE 19 U/L (21-72); ALBUMIN 2.6 g/dL (3.5-5.0); ALKALINE PHOSPHATASE 82 U/L (38-126); ANION GAP 6 (5-19); ASPARTATE AMINO TRANSFERASE 14 U/L (17-59); BILIRUBIN,DIRECT 0.4 mg/dL (0.0-0.4); BILIRUBIN,TOTAL 0.8 mg/dL (0.2-1.3); BLOOD UREA NITROGEN 6 mg/dL (7-20); CALCIUM 8.7 mg/dL (8.4-10.2); CARBON DIOXIDE 26 mmol/L (22-30); CHLORIDE 109 mmol/L (98-107); GLUCOSE 82 mg/dL (75-110); POTASSIUM 4.7 mmol/L (3.6-5.0); SODIUM 141.3 mmol/L (137-145); TOTAL PROTEIN 5.3 g/dL (6.3-8.2)
[2017-11-01] MEDS: SERTRALINE HCL 50 MG TABLET PO SCH (09:52)
--- NOTE | 2017-11-01 11:00 | PDOC PROGRESS REPORT ---
Subjective Progress Note for:: 11/01/17 Subjective:: Patient still confused this morning, poorly communicative. Has not been able to get up. 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 Family agreed to DNR status and comfort care measures. I placed those orders, placed morphine as needed for him, discussed hospice options inpatient/facility versus home hospice. Reason For Visit: HYPERCALCEMIA RENAL CELL CARCINOMA WITH Physical Exam Vital Signs: Temp Pulse Resp BP Pulse Ox 97.5 F 79 17 111/59 L 96 11/01/17 07:46 11/01/17 07:46 11/01/17 07:46 11/01/17 07:46 11/01/17 07:46 Intake & Output 10/31/17 11/01/17 11/02/17 06:59 06:59 06:59 Intake Total 2100 1705 Output Total 1651 1490 Balance 449 215 Weight 63 kg 62.1 kg General appearance: PRESENT: mild distress Mouth exam: PRESENT: dry mucosa Respiratory exam: PRESENT: accessory muscle use, crackles Cardiovascular exam: PRESENT: RRR. ABSENT: diastolic murmur, rubs, systolic murmur GI/Abdominal exam: PRESENT: normal bowel sounds, soft. ABSENT: distended, guarding, mass, organolmegaly, rebound, tenderness Rectal exam: PRESENT: deferred Neurological exam: PRESENT: altered Psychiatric exam: PRESENT: depressed Focused psych exam: PRESENT: restlessness Results Laboratory Results: 11/01/17 06:10 11/01/17 06:10 11/01/17 11/01/17 11/01/17 06:10 06:10 06:10 WBC 6.5 RBC 3.42 L Hgb 10.8 L Hct 29.7 L MCV 87 MCH 31.6 MCHC 36.3 H RDW 14.7 H Plt Count 195 Seg Neutrophils % 80.3 H Lymphocytes % 10.6 L Monocytes % 6.3 Eosinophils % 1.9 Basophils % 0.9 Absolute Neutrophils 5.2 Absolute Lymphocytes 0.7 Absolute Monocytes 0.4 Absolute Eosinophils 0.1 Absolute Basophils 0.1 Sodium 141.3 Potassium 4.7 Chloride 109 H Carbon Dioxide 26 Anion Gap 6 BUN 6 L Creatinine 0.56 Est GFR ( Amer) > 60 Est GFR (Non-Af Amer) > 60 Glucose 82 Calcium 8.7 Ionized Calcium Iva 1.21 Total Bilirubin 0.8 AST 14 L ALT 19 L Alkaline Phosphatase 82 Total Protein 5.3 L Albumin 2.6 L Impressions: Chest X-Ray 10/29/17 10:18 IMPRESSION: Multiple pulmonary nodules worrisome for metastatic disease Abdomen/Pelvis CT 10/29/17 11:13 IMPRESSION: 1. As seen radiographically, there is extensive bilateral pulmonary metastatic disease. 2. The primary lesion is presumably renal cell carcinoma. A large irregular mass largely replaces the right kidney. 3. Large destructive metastatic soft tissue mass in the posterior chest wall partially involves the right scapula. Other bones are suspected to be intact. See description above. Chest CT 10/29/17 11:13 IMPRESSION: 1. As seen radiographically, there is extensive bilateral pulmonary metastatic disease. 2. The primary lesion is presumably renal cell carcinoma. A large irregular mass largely replaces the right kidney. 3. Large destructive metastatic soft tissue mass in the posterior chest wall partially involves the right scapula. Other bones are suspected to be intact. See description above. Head CT 10/29/17 11:14 IMPRESSION: NORMAL BRAIN CT WITHOUT CONTRAST. EVIDENCE OF ACUTE STROKE: NO. Biopsy Ultrasound 10/30/17 00:00 IMPRESSION: ULTRASOUND-GUIDED CORE BIOPSY OF THE SOFT TISSUE MASS AT THE INFERIOR TIP RIGHT SCAPULA, MARKER PLACED WITHIN THE MASS. NO IMMEDIATE POSTPROCEDURE COMPLICATIONS. PATHOLOGY IS PENDING. Assessment & Plan - Diagnosis (1) Renal cell cancer Qualifiers: Laterality: right Qualified Code(s): C64.1 - Malignant neoplasm of right kidney, except renal pelvis Is this a current diagnosis for this admission?: Yes Plan: Discussed with family, comfort care measures to start, DC planning for hospice discussion, home hospice versus inpatient hospice. DNR placed in chart. Patient not candidate for therapy given poor performance status. - Time Time Spent with patient: 35 or more minutes - Inpatient Certification Based on my medical assessment, after consideration of the patient's comorbidities, presenting symptoms, or acuity I expect that the services needed warrant INPATIENT care.: Yes I certify that my determination is in accordance with my understanding of Medicare's requirements for reasonable and necessary INPATIENT services [42 CFR 412.3e].: Yes Medical Necessity: Need for Pain Control
[2017-11-01] MEDS: MORPHINE SULFATE 10 MG/ML INJ IV PRN ×2 (12:48→16:39)
[2017-11-01] MEDS: LORAZEPAM INJ 2 MG/1 ML VIAL IV PRN (22:12)
[2017-11-02] MEDS: MORPHINE SULFATE 10 MG/ML INJ IV PRN ×3 (13:41→23:21)
--- NOTE | 2017-11-02 14:28 | PDOC PROGRESS REPORT ---
Subjective Progress Note for:: 11/01/17 Subjective:: The patient was awake and alert this morning. No new complaints. The patient has very poor PO intake of food and fluids. Reason For Visit: HYPERCALCEMIA RENAL CELL CARCINOMA WITH Physical Exam Vital Signs: Temp Pulse Resp BP Pulse Ox 97.5 F 79 17 111/59 L 96 11/01/17 07:46 11/01/17 07:46 11/01/17 07:46 11/01/17 07:46 11/01/17 07:46 Intake & Output 11/01/17 11/02/17 11/03/17 06:59 06:59 06:59 Intake Total 1705 5 Output Total 1490 900 Balance 215 -895 Weight 62.1 kg 58.3 kg General appearance: PRESENT: no acute distress, other - Cachectic and chronically ill appearing. Respiratory exam: PRESENT: other - No increased work of breathing.. ABSENT: rales, rhonchi, wheezes Cardiovascular exam: PRESENT: RRR, other - No lateral PMI. No thrills.. ABSENT : gallop, rubs, systolic murmur Pulses: PRESENT: other - Diminished distal pulses. GI/Abdominal exam: PRESENT: diminished bowel sounds, soft, other - scaffoid. ABSENT: guarding, hernia, mass, organolmegaly Extremities exam: ABSENT: full ROM, tenderness, +1 edema Neurological exam: PRESENT: awake, oriented to person, oriented to place, CN II- XII grossly intact. ABSENT: oriented to time, motor sensory deficit Skin exam: PRESENT: dry, intact, warm Results Laboratory Results: 11/01/17 06:10 11/01/17 06:10 Impressions: Chest X-Ray 10/29/17 10:18 IMPRESSION: Multiple pulmonary nodules worrisome for metastatic disease Abdomen/Pelvis CT 10/29/17 11:13 IMPRESSION: 1. As seen radiographically, there is extensive bilateral pulmonary metastatic disease. 2. The primary lesion is presumably renal cell carcinoma. A large irregular mass largely replaces the right kidney. 3. Large destructive metastatic soft tissue mass in the posterior chest wall partially involves the right scapula. Other bones are suspected to be intact. See description above. Chest CT 10/29/17 11:13 IMPRESSION: 1. As seen radiographically, there is extensive bilateral pulmonary metastatic disease. 2. The primary lesion is presumably renal cell carcinoma. A large irregular mass largely replaces the right kidney. 3. Large destructive metastatic soft tissue mass in the posterior chest wall partially involves the right scapula. Other bones are suspected to be intact. See description above. Head CT 10/29/17 11:14 IMPRESSION: NORMAL BRAIN CT WITHOUT CONTRAST. EVIDENCE OF ACUTE STROKE: NO. Biopsy Ultrasound 10/30/17 00:00 IMPRESSION: ULTRASOUND-GUIDED CORE BIOPSY OF THE SOFT TISSUE MASS AT THE INFERIOR TIP RIGHT SCAPULA, MARKER PLACED WITHIN THE MASS. NO IMMEDIATE POSTPROCEDURE COMPLICATIONS. PATHOLOGY IS PENDING. Assessment & Plan - Diagnosis (1) Toxic metabolic encephalopathy Is this a current diagnosis for this admission?: Yes Plan: Improved with improved calcium levels, but still confused and not with it per son. Monitor and continue IV fluids. (2) Hypercalcemia Is this a current diagnosis for this admission?: Yes Plan: Secondary to malignancy. Monitor. 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 I appreciate oncology's assistance. The patient underwent biopsy of the scapular lesion with ultrasound guidance with Dr. Hastings. I appreciate her assistance. I also appreciate the assistance of oncology. Awaiting results of biopsy. 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 I appreciate oncology's assistance. The patient underwent biopsy of the scapular lesion with ultrasound guidance with Dr. Hastings. I appreciate her assistance as well as that of oncology. Awaiting pathology. (5) Renal cell cancer Qualifiers: Laterality: right Qualified Code(s): C64.1 - Malignant neoplasm of right kidney, except renal pelvis Is this a current diagnosis for this admission?: Yes Plan: I appreciate oncology's assistance. The patient underwent biopsy of the scapular lesion with ultrasound guidance with Dr. Hastings. I appreciate her assistance as well as that of oncology. Awaiting pathology. - Time Time Spent with patient: 25-34 minutes Medications reviewed and adjusted accordingly: Yes Anticipated discharge: Hospice
--- NOTE | 2017-11-02 14:35 | PDOC PROGRESS REPORT ---
Subjective Progress Note for:: 11/02/17 Subjective:: The patient is sleeping peacefully. No acute distress. Reason For Visit: HYPERCALCEMIA RENAL CELL CARCINOMA WITH Physical Exam Vital Signs: Temp Pulse Resp BP Pulse Ox 97.5 F 79 17 111/59 L 96 11/01/17 07:46 11/01/17 07:46 11/01/17 07:46 11/01/17 07:46 11/01/17 07:46 Intake & Output 11/01/17 11/02/17 11/03/17 06:59 06:59 06:59 Intake Total 1705 5 0 Output Total 1490 900 225 Balance 215 -895 -225 Weight 62.1 kg 58.3 kg General appearance: PRESENT: no acute distress Respiratory exam: PRESENT: other - No increased work of breathing.. ABSENT: rales, rhonchi, wheezes Cardiovascular exam: PRESENT: RRR, other - No lateral PMI. No thrills.. ABSENT : gallop, rubs, systolic murmur Pulses: PRESENT: other - Diminished distal pulses. GI/Abdominal exam: PRESENT: hypoactive bowel sounds, soft, other - scaffoid.. ABSENT: hernia, mass, organolmegaly, tenderness Extremities exam: ABSENT: clubbing, pedal edema, tenderness, +1 edema Neurological exam: PRESENT: other - Unable to evaluate as the patient is unable to cooperate with exam. Skin exam: PRESENT: dry, intact, warm Results Laboratory Results: 11/01/17 06:10 11/01/17 06:10 Impressions: Chest X-Ray 10/29/17 10:18 IMPRESSION: Multiple pulmonary nodules worrisome for metastatic disease Abdomen/Pelvis CT 10/29/17 11:13 IMPRESSION: 1. As seen radiographically, there is extensive bilateral pulmonary metastatic disease. 2. The primary lesion is presumably renal cell carcinoma. A large irregular mass largely replaces the right kidney. 3. Large destructive metastatic soft tissue mass in the posterior chest wall partially involves the right scapula. Other bones are suspected to be intact. See description above. Chest CT 10/29/17 11:13 IMPRESSION: 1. As seen radiographically, there is extensive bilateral pulmonary metastatic disease. 2. The primary lesion is presumably renal cell carcinoma. A large irregular mass largely replaces the right kidney. 3. Large destructive metastatic soft tissue mass in the posterior chest wall partially involves the right scapula. Other bones are suspected to be intact. See description above. Head CT 10/29/17 11:14 IMPRESSION: NORMAL BRAIN CT WITHOUT CONTRAST. EVIDENCE OF ACUTE STROKE: NO. Biopsy Ultrasound 10/30/17 00:00 IMPRESSION: ULTRASOUND-GUIDED CORE BIOPSY OF THE SOFT TISSUE MASS AT THE INFERIOR TIP RIGHT SCAPULA, MARKER PLACED WITHIN THE MASS. NO IMMEDIATE POSTPROCEDURE COMPLICATIONS. PATHOLOGY IS PENDING. Assessment & Plan - Diagnosis (1) Toxic metabolic encephalopathy Is this a current diagnosis for this admission?: Yes Plan: Comfort care. (2) Hypercalcemia Is this a current diagnosis for this admission?: Yes Plan: Comfort care. (3) Metastatic cancer to bone Is this a current diagnosis for this admission?: Yes Plan: Comfort care. 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 (5) Renal cell cancer Qualifiers: Laterality: right Qualified Code(s): C64.1 - Malignant neoplasm of right kidney, except renal pelvis Is this a current diagnosis for this admission?: Yes Plan: Comfort care. - Time Time Spent with patient: 15-24 minutes Anticipated discharge: Hospice
[2017-11-02] MEDS: LORAZEPAM INJ 2 MG/1 ML VIAL IV PRN (17:00)
--- NOTE | 2017-11-03 07:47 | PDOC PROGRESS REPORT ---
Subjective Progress Note for:: 11/03/17 Subjective:: Patient is quite peaceful currently. He is sleeping and does not respond to my voice. Nurses report that he became quite restless after ativan was given but does much better with the morphine. No new issues overnight. He continues with comfort measures only. Family is discussing home with Hospice, vs. continued inpatient care. ROS unable to obtain due to patient's condition. Reason For Visit: HYPERCALCEMIA RENAL CELL CARCINOMA WITH Physical Exam Vital Signs: Temp Pulse Resp BP Pulse Ox 97.5 F 79 17 111/59 L 96 11/01/17 07:46 11/01/17 07:46 11/01/17 07:46 11/01/17 07:46 11/01/17 07:46 Intake & Output 11/02/17 11/03/17 11/04/17 06:59 06:59 06:59 Intake Total 5 17 Output Total 900 225 Balance -895 -208 Weight 58.3 kg General appearance: PRESENT: no acute distress Respiratory exam: PRESENT: crackles, unlabored Cardiovascular exam: PRESENT: irregular rhythm Extremities exam: ABSENT: pedal edema Neurological exam: ABSENT: alert, awake Psychiatric exam: ABSENT: agitated Focused psych exam: PRESENT: restlessness Skin exam: PRESENT: normal color Results Laboratory Results: 11/01/17 06:10 11/01/17 06:10 Impressions: Chest X-Ray 10/29/17 10:18 IMPRESSION: Multiple pulmonary nodules worrisome for metastatic disease Abdomen/Pelvis CT 10/29/17 11:13 IMPRESSION: 1. As seen radiographically, there is extensive bilateral pulmonary metastatic disease. 2. The primary lesion is presumably renal cell carcinoma. A large irregular mass largely replaces the right kidney. 3. Large destructive metastatic soft tissue mass in the posterior chest wall partially involves the right scapula. Other bones are suspected to be intact. See description above. Chest CT 10/29/17 11:13 IMPRESSION: 1. As seen radiographically, there is extensive bilateral pulmonary metastatic disease. 2. The primary lesion is presumably renal cell carcinoma. A large irregular mass largely replaces the right kidney. 3. Large destructive metastatic soft tissue mass in the posterior chest wall partially involves the right scapula. Other bones are suspected to be intact. See description above. Head CT 10/29/17 11:14 IMPRESSION: NORMAL BRAIN CT WITHOUT CONTRAST. EVIDENCE OF ACUTE STROKE: NO. Biopsy Ultrasound 10/30/17 00:00 IMPRESSION: ULTRASOUND-GUIDED CORE BIOPSY OF THE SOFT TISSUE MASS AT THE INFERIOR TIP RIGHT SCAPULA, MARKER PLACED WITHIN THE MASS. NO IMMEDIATE POSTPROCEDURE COMPLICATIONS. PATHOLOGY IS PENDING. Assessment & Plan - Diagnosis (1) Hypercalcemia Is this a current diagnosis for this admission?: Yes Plan: Due to renal cell carcinoma. His calcium normalized after zometa x 1 dose. Family has now chosen comfort measures, so no further labs draws are recommended. (2) Renal cell cancer Qualifiers: Laterality: right Qualified Code(s): C64.1 - Malignant neoplasm of right kidney, except renal pelvis Is this a current diagnosis for this admission?: Yes Plan: Comfort measures only. I will be available for family meeting if requested. Nurses report that family is on board with this plan and have been updated by medical staff. I will sign off, but am happy to continue as his attending with [facility] if family chooses this. Please call me with any questions or concerns. Please call me to arrange family meeting if needed. - Plan Summary Plan Summary: I will increase morphine slightly. He did not do well with ativan, so I will change this to Haldol PRN to see if he responds better to this.
[2017-11-03] MEDS ORDERED: HALOPERIDOL LACTATE INJ 5 MG/1 ML VIAL IV PRN (07:48)
[2017-11-03] MEDS: MORPHINE SULFATE 10 MG/ML INJ IV PRN ×3 (11:32→15:29)
[2017-11-03 15:52] VITALS: BP 123/97
--- NOTE | 2017-11-03 16:55 | PDOC DISCHARGE SUMMARY ---
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 The history is supplied by the patient's daughter who is at bedside. The patient is sleeping and is difficult to arouse. The daughter states that the patient had a check up with his doctor in [place] in 02/2017, and was given a "clean bill of health". She states that he was doing very well and was planning to return to [place] this Spring when he lost his appetite in August. He then changed his plans and did not return to [place]. She states that other than a lack of appetite which has worsened since August and pain in his right knee, he has had no complaints. She had noticed some drastic weight loss when he worse jeans out to dinner a couple of weeks ago. She states that she had to "cinch" the belt at his waist due to weight loss. She states that over a week ago the patient fell and spent a couple of days in bed after that. However after a couple of days, he stated that he thought that the rest had improved his knee pain. However, over the last couple of days she had observed her father becoming weaker and weaker. She states that he got up to go to the bathroom yesterday evening. After he left the bathroom, she observed bloody material, she wasn't sure if it was fecal material or bloody urine, all over the bathroom. That is when she decided to bring him to the ED this morning. The patient's daughter is not certain of the patient's medical history. She states that he had a heart catheterization 3-5 years ago. She does not know if he received any stents at that time. She states that he has had atrial fibrillation in the past. He is a diabetic and had been very poorly controlled until she became involved in his physical care after the of her mother. He takes only metformin for his diabetes, but this was stopped on the advise of his doctor in [place] after they called him to discuss his lack of appetite in August. He has hypertension, but normal cholesterol. The daughter is not aware of any history of renal or hepatic problems. No GI history. He does have a diagnosis of anxiety for which he takes Zoloft. In the ED he has been found to have a calcium of 12, a large right renal mass, bilateral pulmonary metastasis, and a right scapular lesion. he is obtunded and is unable to participate in history or physical. Hospital Course Hospital Course: The patient was admitted to a telemetry bed. His hypercalcemia was treated with IV fluids and zolendronic acid. After two days he had resolution of his hypercalcemia. He underwent biopsy of the scapular lesion with IR on 10/30/17. Pathology is still pending. Hematology oncology was consulted and I greatly appreciate their assistance. The patient has demonstrated exceedingly poor functional status since admission. Per hematology the patient would not be a candidate for chemotherapy for this reason alone. The family decided to make the patient comfort care only on 11/02/2017. He was discharged to home with hospice today. Physical Exam Vital Signs: Temp Pulse Resp BP Pulse Ox 97.4 F 92 19 102/59 L 96 11/03/17 11:47 11/03/17 11:47 11/03/17 11:47 11/03/17 11:47 11/03/17 11:47 Intake & Output 11/02/17 11/03/17 11/04/17 06:59 06:59 06:59 Intake Total 5 17 Output Total 900 225 Balance -895 -208 Weight 58.3 kg General appearance: PRESENT: no acute distress Respiratory exam: PRESENT: other - No increased work of breathing. No wheezes, rales, or rhonchi. No tactile fremitus. Cardiovascular exam: PRESENT: RRR. ABSENT: gallop, rubs, systolic murmur Pulses: PRESENT: other - Diminished distal pulses. GI/Abdominal exam: PRESENT: normal bowel sounds, soft, other - Scaffoid.. ABSENT: hernia, mass, organolmegaly, tenderness Extremities exam: ABSENT: calf tenderness, full ROM, joint swelling, tenderness Skin exam: PRESENT: dry, intact, warm Results Laboratory Results: 11/01/17 06:10 11/01/17 06:10 Impressions: Chest X-Ray 10/29/17 10:18 IMPRESSION: Multiple pulmonary nodules worrisome for metastatic disease Abdomen/Pelvis CT 10/29/17 11:13 IMPRESSION: 1. As seen radiographically, there is extensive bilateral pulmonary metastatic disease. 2. The primary lesion is presumably renal cell carcinoma. A large irregular mass largely replaces the right kidney. 3. Large destructive metastatic soft tissue mass in the posterior chest wall partially involves the right scapula. Other bones are suspected to be intact. See description above. Chest CT 10/29/17 11:13 IMPRESSION: 1. As seen radiographically, there is extensive bilateral pulmonary metastatic disease. 2. The primary lesion is presumably renal cell carcinoma. A large irregular mass largely replaces the right kidney. 3. Large destructive metastatic soft tissue mass in the posterior chest wall partially involves the right scapula. Other bones are suspected to be intact. See description above. Head CT 10/29/17 11:14 IMPRESSION: NORMAL BRAIN CT WITHOUT CONTRAST. EVIDENCE OF ACUTE STROKE: NO. Biopsy Ultrasound 10/30/17 00:00 IMPRESSION: ULTRASOUND-GUIDED CORE BIOPSY OF THE SOFT TISSUE MASS AT THE INFERIOR TIP RIGHT SCAPULA, MARKER PLACED WITHIN THE MASS. NO IMMEDIATE POSTPROCEDURE COMPLICATIONS. PATHOLOGY IS PENDING. Qualifiers - * PATIENT BEING DISCHARGED WITH ANY OF THE FOLLOWING DIAGNOSIS: No
== END 2017-11-03 16:00 | disposition hospice, home (50) | DRG 673 ==
LOC: ER 09:58 → EH 15:16 → 4S 19:00
PROVIDERS: ADMIT Internal Medicine; ATTEND Internal Medicine
PROC: 0PB53ZX Excision of Right Scapula, Percutaneous Approach, Diagnostic (ICD-10-PCS; principal; 2017-10-30)
DX: C64.1 Malignant neoplasm of right kidney, except renal pelvis (principal); G92 Toxic encephalopathy; Z66 Do not resuscitate; C78.01 Secondary malignant neoplasm of right lung; C78.02 Secondary malignant neoplasm of left lung; C79.51 Secondary malignant neoplasm of bone; Z68.1 Body mass index [BMI] 19.9 or less, adult; E83.52 Hypercalcemia; E11.8 Type 2 diabetes mellitus with unspecified complications; R62.7 Adult failure to thrive; I48.91 Unspecified atrial fibrillation; R63.4 Abnormal weight loss; F32.9 Major depressive disorder, single episode, unspecified
CPT/HCPCS: 20206; 36415; 51702; 70450; 71045; 71260; 74177; 80048; 80053; 81001; 82272; 82330; 82550; 82553; 82962; 83605; 83690; 83735; 84100; 84484; 85025; 85610; 85730; 87040; 87086; 88305; 88313; 88341; 88342; 93005; 93010; 96360; 96361; 99285; G8978-GP; G8979-GP; J2060; J2270; J3489; J7030; J7120